=== PATIENT | male | born 1960 | race African-American/Black ===

== ENCOUNTER 2019-04-08 07:47 | Emergency (ER) | payer BC ==
[~2019-04-08] VITALS: Ht 180.3 cm; Wt 125.0 kg
[2019-04-08] MEDS ORDERED: KETOROLAC 60 MG/2 ML VIAL (J1885) IM ONE (08:30)
[2019-04-08] MEDS ORDERED: METF500T13 PO (08:43)
[2019-04-08] MEDS ORDERED: ROBA500T PO (09:13)
[2019-04-08] MEDS ORDERED: NAPR-837 PO (09:13)
[2019-04-08 09:41] VITALS: BP 137/78
== END 2019-04-08 09:42 | disposition home or self-care (01) ==
LOC: M ED 07:47
DX: M54.41 Lumbago with sciatica, right side (principal); M54.42 Lumbago with sciatica, left side; I10 Essential (primary) hypertension; E11.9 Type 2 diabetes mellitus without complications; Z88.0 Allergy status to penicillin; Z79.84 Long term (current) use of oral hypoglycemic drugs
CPT/HCPCS: 96372; 99283; J1885